=== PATIENT | male | born 1990 | race Caucasian/White ===

== ENCOUNTER 2016-07-21 22:28 | Emergency (ER) | payer OTHER ==
--- NOTE | 2016-07-21 23:01 | ED CLINICAL REPORT ---
Clinical Report - Physicians/Mid Levels [facility] [address] [place] [address] 07/21/2016 22:29 Patient: RASHID ALEXANDER Time Seen: 22:48; initial patient contact, initial documentation, patient care assumed. Arrived- By private vehicle. Historian- patient and family. HISTORY OF PRESENT ILLNESS Chief Complaint: Injury to the right ankle. The injury happened today happened this morning before work. The patient sustained a laceration from broken glass (coffee cup). Occurred at home. Patient is experiencing mild pain. Patient denies injury to the head or neck. No other injury. REVIEW OF SYSTEMS The patient sustained a laceration. No swelling, tingling, weakness or numbness. He has no pain on weight bearing. All systems otherwise negative, except as recorded above. PAST HISTORY See nurses notes. PROBLEMS: Hemorrhoids. GI Bleeding. Immunizations. Asthma. --22:41 Elvi Correa. ADDITIONAL SURGERIES: no known surgeries. Tetanus immunization status is unknown. SOCIAL HISTORY Never smoker. Occasional alcohol use. No drug use. No recent travel. Is a local resident. FAMILY HISTORY No significant family medical history. ADDITIONAL NOTES The nursing notes have been reviewed with agreement regarding the chief complaint, HPI, ROS, PMH and patient medications and allergies. PHYSICAL EXAM Vital Signs: 07/21/2016 22:40 BP: 108/66. HR: 74. RR: 20. O2 saturation: 100%. Temp: 97.4 F. Pain level now: 5/10. Have been reviewed as normal and appear to be correct. Appearance: Alert. Oriented X3. No acute distress. Head: Head atraumatic. Eyes: Pupils equal, round and reactive to light. Eyes normal inspection. Respiratory: No respiratory distress. Skin: Skin intact. Skin warm and dry. Extremities: Ankle injury present. Right lateral ankle: mild tenderness and subcutaneous 1.5 cm laceration of the lateral malleolus. SEE LACERATION PROCEDURE NOTE #1. Neurovascular intact distally. (right above malleolus). No ligamentous laxity present. No joint effusion. No erythema, swelling, abrasion, ecchymosis or puncture wound. No foreign body. No deformity consistent with a fracture, dislocation, or ligament rupture. No limitation in ROM. Foot injury present. Foot and ankle exam otherwise negative. Extremities otherwise negative. Gait: Normal gait. Neuro, Vascular and Tendons: Vascular status intact. Sensation intact. Motor intact. Tendon function intact. Neuro: Oriented X 3. No motor deficit. No sensory deficit. Note: isolated injury to ankle. PROGRESS AND PROCEDURES Laceration Repair: Location: right ankle. Length: 1.5cm. Complexity: simple (local anesthesia used and stapled). Wound depth/shape- linear and irregular and involving fascia. Wound is clean. No contamination, foreign body or contused tissue present. No tissue loss. Distal neuro/vascular/tendon status normal. Tendon not examined. No tendon deficit or laceration or tendon injury. Local anesthesia provided using 1% lidocaine (3 mL). Prepped with Betadine. Wound explored, cleansed, irrigated and examined to the base in bloodless field with normal saline. Wound not debrided extensively. No foreign material removed. Closure of superficial layer: (3 gael). Post-procedure: he is stable and there are no complications. Bleeding is controlled and neuro-vascular status is intact distal to the wound. Dressing applied. (per tech/nurse see other notes). Tetanus immunization given. Estimated blood loss: 1 mL. Course of Care: pt aware that with time delay wound edges might not approximate as well. Patient and family counseled in person regarding the patient's stable condition and diagnosis. Differential Diagnosis: Other possible considerations: lac, delayed tx, fb, skin avulsion. Above considerations are based on history and physical exam. Differential diagnosis was discussed with patient and patient's family. Disposition: Discharged home in good and improved condition (23:01). Condition: good and stable. CLINICAL IMPRESSION Single superficial laceration to the right ankle. Delayed treatment.No infection or foreign body present. INSTRUCTIONS Protect wound and keep wound area clean. Change dressing twice daily. Soak in warm soapy water twice daily. Apply bacitracin twice daily. Gael should be removed in ten days. Warnings: TETANUS: You were given a tetanus shot during your visit. Make a note for future reference. GENERAL WARNINGS: Return or contact your physician immediately if your condition worsens or changes unexpectedly, if not improving as expected, or if other problems arise. Specifically return if problem worsens. Follow-up: Follow up with your doctor in about ten days even if well and for suture removal and wound check. Call for an appointment. Summary of care provided to patient and family. Understanding of the discharge instructions verbalized by patient. (Electronically signed by Yamila Marte A.R.N.P. 07/27/2016 13:06)
--- NOTE | 2016-07-21 23:02 | ED NURSING NOTES ---
Clinical Report - Nurses [facility] [address] [place] [address] 07/21/2016 22:29 Patient: RASHID ALEXANDER TRIAGE Triage time 22:40 Jul 21 2016. Acuity: LEVEL 3. Chief Complaint: LACERATION. SEPSIS SCREEN: Sepsis Screen: negative. Negative (no infection suspected/documented). BEBETO COMA SCORE: [place] Coma Scale: 15- eyes open spontaneously (4); best verbal response- oriented x 4 (5); best motor response- obeys commands (6). --22:43 lEvi Correa 22:40 07/21/16. BP: 108/66. HR: 74. RR: 20. O2 saturation: 100%. Temp: 97.4 F (oral). Pain level now: 5/10. --22:43 Elvi Correa. Weight: 56.6 kg stated. Height/Length: 69 inches Per Patient. BMI: 18.4. --22:41 Elvi Correa. Medications None. --22:41 Elvi Correa. Medication/allergy information source: the patient. --22:43 Elvi Correa. Allergies No Known Drug Allergy. --22:41 Elvi Correa. History Arrived by private vehicle. Historian: patient. Accompanied by friend. Primary physician (dr hernandez). Location of injuries: right ankle. This occurred today. Occurred at home. ( Patient reports a coffee cup fell off the table and lacerated his right ankle this morning.). PAST MEDICAL HX: Tetanus status: up-to-date. Immunizations: status is unknown. SOCIAL HX: Never smoker. Occasional alcohol use. No drug use. No infectious disease exposure. ABUSE ASSESSMENT: No report of abuse. SELF HARM ASSESSMENT: A self harm assessment was performed. The patient answered "no" to the question "Have you recently felt down, depressed, or hopeless?", "Have you noticed less interest or pleasure in doing things?", "Do you have thoughts of harming or killing yourself?", "Are you here because you tried to hurt yourself?", "Have you ever tried to hurt yourself before today?", "Have you recently had thoughts about harming or killing others?" and "Do you have any dangerous items in your possession?". FALL RISK ASSESSMENT: Fall risk assessment completed. No fall risk identified. NUTRITIONAL RISK ASSESSMENT: The nutritional risk assessment revealed no deficiencies. FUNCTIONAL ASSESSMENT: Functional assessment: no impairments noted. LEARNING NEEDS ASSESSMENT: The learning needs assessment revealed no barriers. SKIN INTEGRITY ASSESSMENT: Skin integrity risk assessment completed. No skin integrity risk identified. --22:43 Elvi Correa. PROBLEMS: Hemorrhoids. GI Bleeding. Immunizations. Asthma. --22:41 Elvi Correa. ADDITIONAL SURGERIES: no known surgeries. Interventions ID band on patient. To treatment room. --22:43 Elvi Correa. PHYSICAL ASSESSMENT Ambulatory to room. GENERAL / NEURO / PSYCH: Alert. Oriented X 4. Appears in no acute distress. RESPIRATORY: Respirations not labored. EXTREMITIES: Right ankle: subcutaneous 4.0 cm laceration with controlled bleeding. SKIN: Skin is warm and dry. --22:43 Elvi Correa CVS: Normal heart rate and rhythm. Pulses within normal limits. --22:43 Elvi Correa. NURSING PROGRESS NOTES 22:44 07/21/16. Cold pack applied. Extremity elevated. Reassurance given to the patient. Two patient identifiers checked. Call light placed in reach. Side rails up x 1. Bed placed in lowest position. Brakes of bed on. Patient ready for evaluation- chart flagged and ED physician notified. --22:44 Elvi Correa 23:02. Applied clean dressing consisting of 4x4 gauze, following the application of antibiotic ointment (bacitracin). Secured with tape and gume. --23:06 Rayna Hurst 22:55 07/21/16. WOUND REPAIR: Wound repair performed by [facility]. Assisted by one tech. The wound is located on the right ankle. Preparation: with 1% lidocaine. Wound cleansed per PA and irrigated per PA. Procedure: wound repaired with shahrzad. Post-procedure: he was stable, no complications, bleeding controlled, neuro-vascular status intact distal to wound and dressing applied. Total time of assist / procedure: 15 minutes. --23:10 Elvi Correa 22:56 07/21/2016 TDAP IM 0.5 mL given. (Lot#: [id number], expiration date: 02/04/2018, Assistant Manager Trainee: sanofi pasteur). Given in the left deltoid. Allergies verified and confirmed 5 rights. Vaccine information statement provided to the patient. --22:56 Uday Rodríguez R.N. 22:56 07/21/2016 Lidocaine Injection Injectable 1 % given. (Left at bedside). --22:56 Uday Rodríguez R.N. DISPOSITION / DISCHARGE Condition at departure: improved and stable. The goals identified in the patient's plan of care were met. No learning barriers present. Discharge instructions provided and reviewed with the patient and family. Reviewed wound care and skin care instructions. Patient verbalized understanding. Written instructions provided in [place]. ( Follow up with PCP in ten days. Reviewed signs and symptoms of wound infection to look out for. Keep wound clean and dry.). The patient was discharged by the physician virtual customer assistant. He was discharged home and accompanied by parent. He left the Emergency Department ambulatory and via private vehicle. Parent driving. FALL RISK ASSESSMENT: Fall risk assessment completed. No fall risk identified. --23:09 Elvi Correa 23:08 07/21/16. BP: deferred. HR: deferred. RR: deferred. O2 saturation: deferred. Temp: deferred. Pain level now deferred. --23:09 Elvi Correa. Locked/Released at 07/21/2016 23:11 by Elvi Correa,
--- NOTE | 2016-07-21 23:02 | ED NURSING NOTES ---
Clinical Report - Nurses [facility] [address] [place] [address] 07/21/2016 22:29 Patient: RASHID ALEXANDER TRIAGE Triage time 22:40 Jul 21 2016. Acuity: LEVEL 3. Chief Complaint: LACERATION. SEPSIS SCREEN: Sepsis Screen: negative. Negative (no infection suspected/documented). BEBETO COMA SCORE: [place] Coma Scale: 15- eyes open spontaneously (4); best verbal response- oriented x 4 (5); best motor response- obeys commands (6). --22:43 Elvi Correa 22:40 07/21/16. BP: 108/66. HR: 74. RR: 20. O2 saturation: 100%. Temp: 97.4 F (oral). Pain level now: 5/10. --22:43 Elvi Correa. Weight: 56.6 kg stated. Height/Length: 69 inches Per Patient. BMI: 18.4. --22:41 Elvi Correa. Medications None. --22:41 Elvi Correa. Medication/allergy information source: the patient. --22:43 Elvi Correa. Allergies No Known Drug Allergy. --22:41 Elvi Correa. History Arrived by private vehicle. Historian: patient. Accompanied by friend. Primary physician (dr hernandez). Location of injuries: right ankle. This occurred today. Occurred at home. ( Patient reports a coffee cup fell off the table and lacerated his right ankle this morning.). PAST MEDICAL HX: Tetanus status: up-to-date. Immunizations: status is unknown. SOCIAL HX: Never smoker. Occasional alcohol use. No drug use. No infectious disease exposure. ABUSE ASSESSMENT: No report of abuse. SELF HARM ASSESSMENT: A self harm assessment was performed. The patient answered "no" to the question "Have you recently felt down, depressed, or hopeless?", "Have you noticed less interest or pleasure in doing things?", "Do you have thoughts of harming or killing yourself?", "Are you here because you tried to hurt yourself?", "Have you ever tried to hurt yourself before today?", "Have you recently had thoughts about harming or killing others?" and "Do you have any dangerous items in your possession?". FALL RISK ASSESSMENT: Fall risk assessment completed. No fall risk identified. NUTRITIONAL RISK ASSESSMENT: The nutritional risk assessment revealed no deficiencies. FUNCTIONAL ASSESSMENT: Functional assessment: no impairments noted. LEARNING NEEDS ASSESSMENT: The learning needs assessment revealed no barriers. SKIN INTEGRITY ASSESSMENT: Skin integrity risk assessment completed. No skin integrity risk identified. --22:43 Elvi Correa. PROBLEMS: Hemorrhoids. GI Bleeding. Immunizations. Asthma. --22:41 Elvi Correa. ADDITIONAL SURGERIES: no known surgeries. Interventions ID band on patient. To treatment room. --22:43 Elvi Correa. PHYSICAL ASSESSMENT Ambulatory to room. GENERAL / NEURO / PSYCH: Alert. Oriented X 4. Appears in no acute distress. RESPIRATORY: Respirations not labored. EXTREMITIES: Right ankle: subcutaneous 4.0 cm laceration with controlled bleeding. SKIN: Skin is warm and dry. --22:43 Elvi Correa CVS: Normal heart rate and rhythm. Pulses within normal limits. --22:43 Elvi Correa. NURSING PROGRESS NOTES 22:44 07/21/16. Cold pack applied. Extremity elevated. Reassurance given to the patient. Two patient identifiers checked. Call light placed in reach. Side rails up x 1. Bed placed in lowest position. Brakes of bed on. Patient ready for evaluation- chart flagged and ED physician notified. --22:44 Elvi Correa 23:02. Applied clean dressing consisting of 4x4 gauze, following the application of antibiotic ointment (bacitracin). Secured with tape and gume. --23:06 Rayna Hurst 22:55 07/21/16. WOUND REPAIR: Wound repair performed by [facility]. Assisted by one tech. The wound is located on the right ankle. Preparation: with 1% lidocaine. Wound cleansed per PA and irrigated per PA. Procedure: wound repaired with shahrzad. Post-procedure: he was stable, no complications, bleeding controlled, neuro-vascular status intact distal to wound and dressing applied. Total time of assist / procedure: 15 minutes. --23:10 Elvi Correa 22:56 07/21/2016 TDAP IM 0.5 mL given. (Lot#: [id number], expiration date: 02/04/2018, Blasting Helper: sanofi pasteur). Given in the left deltoid. Allergies verified and confirmed 5 rights. Vaccine information statement provided to the patient. --22:56 Uday Rodríguez R.N. 22:56 07/21/2016 Lidocaine Injection Injectable 1 % given. (Left at bedside). --22:56 Uday Rodríguez R.N. DISPOSITION / DISCHARGE Condition at departure: improved and stable. The goals identified in the patient's plan of care were met. No learning barriers present. Discharge instructions provided and reviewed with the patient and family. Reviewed wound care and skin care instructions. Patient verbalized understanding. Written instructions provided in Yoruba. ( Follow up with PCP in ten days. Reviewed signs and symptoms of wound infection to look out for. Keep wound clean and dry.). The patient was discharged by the physician radiology physician assistant. He was discharged home and accompanied by parent. He left the Emergency Department ambulatory and via private vehicle. Parent driving. FALL RISK ASSESSMENT: Fall risk assessment completed. No fall risk identified. --23:09 Elvi Correa 23:08 07/21/16. BP: deferred. HR: deferred. RR: deferred. O2 saturation: deferred. Temp: deferred. Pain level now deferred. --23:09 Elvi Correa. Locked/Released at 07/21/2016 23:11 by Elvi Correa,
--- NOTE | 2016-07-21 23:02 | ED ORDER SUMMARY ---
..... Patient: RASHID ALEXANDER OrderSheet [facility] VisitID: [id number] [place] [address] 25y, M Registration Date/Time: 07/21/2016 ORDER SHEET Weight: 56.6 kg (stated) Allergies: No Known Drug Allergy GENERAL ORDERS: MEDICATION ORDERS: Tdap IM 0.5 mL (NOW) (22:54 07/21/2016 JDeElena R.N. verbal order read back to HBivens A.R.N.P.) (Ack 22:55 HSoule) (22:56 JDeElena R.N.) Lidocaine Injection 1% (NOW, place at bedside, with syringes & needles) (:54 07/21/2016 JDeElena R.N. verbal order read back to HBivens A.R.N.P.) (Ack 22:55 HSoule) (22:56 JDeElena R.N.) IV FLUIDS: ORDER SHEET NOTES: [Electronically signed by Elvi Correa (23:11 07/21/2016)] [Electronically signed by Yamila Marte A.R.N.P. (13:06 07/27/2016)] [Electronically locked/signed by Elvi Correa (23:11 07/21/2016)]
--- NOTE | 2016-07-21 23:02 | ED ORDER SUMMARY ---
..... Patient: RASIHD ALEXANDER OrderSheet [facility] VisitID: [id number] [place] [address] 25y, M Registration Date/Time: 07/21/2016 ORDER SHEET Weight: 56.6 kg (stated) Allergies: No Known Drug Allergy GENERAL ORDERS: MEDICATION ORDERS: Tdap IM 0.5 mL (NOW) (22:54 07/21/2016 JDeElena R.N. verbal order read back to HBivens A.R.N.P.) (Ack 22:55 HSoule) (22:56 JDeElena R.N.) Lidocaine Injection 1% (NOW, place at bedside, with syringes & needles) (:54 07/21/2016 JDeElena R.N. verbal order read back to HBivens A.R.N.P.) (Ack 22:55 HSoule) (22:56 JDeElena R.N.) IV FLUIDS: ORDER SHEET NOTES: [Electronically signed by Elvi Correa (23:11 07/21/2016)] [Electronically signed by Yamila Marte A.R.N.P. (13:06 07/27/2016)] [Electronically locked/signed by Elvi Correa (23:11 07/21/2016)]
--- NOTE | 2016-07-27 13:06 | ED MAR SUMMARY ---
..... Medication Administration Record [facility] [address] [place] [address] Patient: RASHID ALEXANDER Visit ID: [id number] 25y, M Weight: 56.6 kg Height/Length: 69 in BMI: 18.4 ALLERGIES: No Known Drug Allergy Given 22:07/21/2016 Uday Rodríguez, R.N. Medication Administered: TDAP [IM], Dose: 0.5 mL IM. Medication Ordered: Tdap IM 0.5 mL (NOW). Given 22:07/21/2016 Uday Rodríguez, R.N. Medication Administered: LIDOCAINE [INJECTION], Dose: 1 % Injectable Injection. Medication Ordered: Lidocaine Injection 1% (NOW, place at bedside, with syringes & needles).
--- NOTE | 2016-07-27 13:06 | ED MED RECONCILIATION SUMMARY ---
Patient: RASHID ALEXANDER Medication Reconciliation Report [facility] VisitID: [id number] [address] [place] [address] 25y, M Registration Date/Time: 07/21/2016 Weight: 56.6 kg Height/Length: 69 in. BMI: 18.4 ALLERGIES: No Known Drug Allergy The patient's Home Medications are listed below: NONE. The source(s) of the original Home Medication information: patient The following Medications were given to the patient in the Emergency Department: TDAP [IM] IM 0.5 mL, administered: 07/21/2016 10:56:00 PM Lidocaine [Injection] Injection 1 %, administered: 07/21/2016 10:56:00 PM The following Medications were prescribed to the patient: None.
--- NOTE | 2016-07-27 13:06 | ED MED RECONCILIATION SUMMARY ---
Patient: RASHID ALEXANDER Medication Reconciliation Report [facility] VisitID: [id number] [address] [place] [address] 25y, M Registration Date/Time: 07/21/2016 Weight: 56.6 kg Height/Length: 69 in. BMI: 18.4 ALLERGIES: No Known Drug Allergy The patient's Home Medications are listed below: NONE. The source(s) of the original Home Medication information: patient The following Medications were given to the patient in the Emergency Department: TDAP [IM] IM 0.5 mL, administered: 07/21/2016 10:56:00 PM Lidocaine [Injection] Injection 1 %, administered: 07/21/2016 10:56:00 PM The following Medications were prescribed to the patient: None.
--- NOTE | 2016-07-27 13:06 | ED DISCHARGE INSTRUCTIONS ---
Patient: RASHID ALEXANDER General Instructions [facility] VisitID: [id number] [place] [address] 25y, M Registration Date/Time: 07/21/2016 Single superficial laceration to the right ankle. Delayed treatment.No infection or foreign body present. INSTRUCTIONS Protect wound and keep wound area clean. Change dressing twice daily. Soak in warm soapy water twice daily. Apply bacitracin twice daily. Gael should be removed in ten days. Warnings: TETANUS: You were given a tetanus shot during your visit. Make a note for future reference. GENERAL WARNINGS: Return or contact your physician immediately if your condition worsens or changes unexpectedly, if not improving as expected, or if other problems arise. Specifically return if problem worsens. Follow-up: Follow up with your doctor in about ten days even if well and for suture removal and wound check. Call for an appointment. Summary of care provided to patient and family. Understanding of the discharge instructions verbalized by patient. ADDITIONAL INFORMATION Laceration (All Closures) Alaceration is a cut through the skin. This will usually require stitches (sutures) or gael if it is deep. Minor cuts may be treated with a surgical tape closure orskin glue. Home care The following guidelines will help you care for your laceration at home: Extremity, face, or trunk wounds Keep the wound clean and dry. If a bandage was applied and it becomes wet or dirty, replace it. Otherwise, leave it in place for the first 24 hours. If stitches or gael were used, clean the wound daily. After removing the bandage, wash the area with soap and water. Use a wet cotton swab to loosen and remove any blood or crust that forms. The doctor may prescribe an antibiotic cream or ointment to prevent infection. Do not stop taking this medication until you have finished the prescribed course or the doctor tells you to stop. The doctor may also prescribe medications for pain. Follow the doctors instructions for taking these medications. You may remove the bandage to shower as usual after the first 24 hours, but do not soak the area in water (no swimming) until the stitches or gael are removed. If surgical tape was used, keep the area clean and dry. If it becomes wet, blot it dry with a towel. If skin glue was used, do not scratch, rub, or pick at the adhesive film. Do not place tape directly over the film. Do not apply liquid, ointment, or creams to the wound while the film is in place. Do not clean the wound with peroxide and do not apply ointments. Avoid activities that cause heavy sweating until the film has fallen off. Protect the wound from prolonged exposure to sunlight or tanning lamps. You may shower as usual but do not soak the wound in water (no baths or swimming). The film will fall off by itself in 510 days. Scalp wounds During the first two days, you may carefully rinse your hair in the shower to remove blood, glass or dirt particles. After two days, you may shower and shampoo your hair normally. Do not soak your scalp in the tub or go swimming until the stitches or gael have been removed. Talk with your doctor before applying any antibiotic ointment to the wound. Mouth wounds Eat soft foods to reduce pain. If the cut is inside of your mouth, clean by rinsing after each meal and at bedtime with a mixture of equal parts water and hydrogen peroxide (do not swallow!). Or, you can use a cotton swab to directly apply hydrogen peroxide onto the cut. Mouth wounds can be painful when eating. You may use an pesk-hjw-wrtmifi local numbing solution for pain relief. If this is not available, you may use any numbing solution for teething babies. You may apply this directly to the sores with a cotton-tip swab or with your finger. Follow-up care Follow up with your health care provider. Most skin wounds heal within ten days. Mouth and facial wounds heal within five days. However, even with proper treatment, a wound infection may sometimes occur. Therefore, you should check the wound daily for signs of infection listed below. Stitches should be removed from the face within five days; stitches and gael should be removed from other parts of the body within 714 days. If dissolving stitches were used in the mouth, these will fall out or dissolve without the need for removal. If tape closures were used, remove them yourself if they have not fallen off after 7 days. Ifskin glue was used, the film will fall off by itself in 510 days. When to seek medical care Get prompt medical attention if any of these occur: Bleeding not controlled by direct pressure Signs of infection, including increasing pain in the wound, increasing wound redness or swelling, or pus coming from the wound Fever of 100.4F (38C) or higher, or as directed by your health care provider Stitches or gael come apart or fall out or surgical tape falls off before 7 days Wound edges re-open Laceration, Extremity (Sutures, [place], Or Tape) A laceration is a cut through the skin. This will usually require stitches (sutures) or gael if it is deep. Minor cuts may be treated with surgical tape closures. Home care The following guidelines will help you care for your laceration at home: Keep the wound clean and dry. If a bandage was applied and it becomes wet or dirty, replace it. Otherwise, leave it in place for the first 24 hours, then change it once a day or as directed. If stitches or gael were used, clean the wound daily: After removing the bandage, wash the area with soap and water. Use a wet cotton swab to loosen and remove any blood or crust that forms. After cleaning, keep the wound clean and dry. Talk with your doctor before applying any antibiotic ointment to the wound. Reapply the bandage. You may remove the bandage to shower as usual after the first 24 hours, but do not soak the area in water (no swimming) until the stitches or gael are removed. If surgical tape closures were used, keep the area clean and dry. If it becomes wet, blot it dry with a towel. The doctor may prescribe an antibiotic cream or ointment to prevent infection. Do not stop taking this medication until you have finished the prescribed course or the doctor tells you to stop. The doctor may also prescribe medications for pain. Follow the doctors instructions for taking these medications. If you have chronic liver or kidney disease or ever had a stomach ulcer or GI bleeding, talk with your doctor before using these medicines. Follow-up care Follow up with your health care provider. Most skin wounds heal within ten days. However, an infection may sometimes occur despite proper treatment. Therefore, check the wound daily for the signs of infection listed below. Stitches and gael should be removed within 714 days. If surgical tape closures were used, you may remove them after 10 days, if they have not fallen off by then. Notify your doctor if you notice persistent numbness or weakness in the injured extremity. (Note:A radiologist will review any X-rays that were taken. We will notify you of any new findings that may affect your care.) When to seek medical care Get prompt medical attention if any of these occur: Increasing pain in the wound Redness, swelling, or pus coming from the wound Fever of 100.4F (38C) or higher, or as directed by your health care provider If stitches or gael come apart or fall out before your next appointment If the surgical tape closures fall off within seven days, or the wound edges re-open Bleeding not controlled by direct pressure Diphtheria Toxoid Adsorbed, Pertussis Vaccine, Acellular (Adsorbed), Tetanus Toxoid, Adsorbed Suspension for injection What is this medicine? DIPHTHERIA and TETANUS TOXOIDS; PERTUSSIS VACCINE (dif THEER ee uh and TET n us TOK soids; per TUS iss vak SEEN) is used to prevent diphtheria, tetanus, and pertussis infections. How should I use this medicine? This vaccine is for injection into a muscle. It is given by a health home health care coordinator. A copy of Vaccine Information Statements will be given before each vaccination. Read this sheet carefully each time. The sheet may change frequently. Talk to your order worker regarding the use of this vaccine in children. While the DTP vaccine may be given to children ages 6 weeks to 7 years and the Tdap vaccine may be given to children at least 10 years old, precautions do apply. What side effects may I notice from receiving this medicine? Side effects that you should report to your doctor or health home health care coordinator as soon as possible: allergic reactions like skin rash, itching or hives, swelling of the face, lips, or tongue breathing problems fever of 103 degrees F or more flu-like symptoms inconsolable crying infection pain, tingling, numbness in the hands or feet seizures swelling of arm or leg that was injected unusually weak or tired Side effects that usually do not require immediate medical attention (report these side effects to your doctor or health home health care coordinator if they continue or are bothersome): fussy, irritable loss of appetite fever of 102 degrees F or less pain, tenderness, redness, swelling, or a 'knot' at site where injected vomiting What may interact with this medicine? immune globulin medicines that suppress your immune function like adalimumab, anakinra, infliximab medicines to treat cancer medicines that treat or prevent blood clots like warfarin, enoxaparin, and dalteparin steroid medicines like prednisone or cortisone What if I miss a dose? It is important not to miss your dose. Call your doctor or health home health care coordinator if you are unable to keep an appointment. Where should I keep my medicine? This drug is given in a hospital or clinic and will not be stored at home. What should I tell my health care provider before I take this medicine? They need to know if you have any of these conditions: blood disorders like hemophilia fever or infection immune system problems neurologic disease seizures an unusual or allergic reaction to vaccines, thimerosal, latex, other medicines, foods, dyes, or preservatives or trying to get breast-feeding What should I watch for while using this medicine? See your health care provider for all shots of this vaccine as directed. To have protection from infection, you must have 3 shots of this vaccine plus boosters as needed. Tell your doctor right away if you have any serious or unusual side effects after getting this vaccine. You have been given the following additional information: Laceration, All Laceration, Extrem (Suture, Staple, Or Tape) Diphtheria Toxoid Adsorbed, Pertussis Vaccine, Acellular (Adsorbed), Tetanus Toxoid, Adsorbed Suspension for injection (Electronically signed by Yamila Marte A.R.N.P. 07/27/2016 13:06)
--- NOTE | 2016-07-27 13:06 | ED MAR SUMMARY ---
..... Medication Administration Record [facility] [address] [place] [address] Patient: RASHID ALEXANDER Visit ID: [id number] 25y, M Weight: 56.6 kg Height/Length: 69 in BMI: 18.4 ALLERGIES: No Known Drug Allergy Given 22:07/21/2016 Uday Rodríguez, R.N. Medication Administered: TDAP [IM], Dose: 0.5 mL IM. Medication Ordered: Tdap IM 0.5 mL (NOW). Given 22:07/21/2016 Uday Rodríguez, R.N. Medication Administered: LIDOCAINE [INJECTION], Dose: 1 % Injectable Injection. Medication Ordered: Lidocaine Injection 1% (NOW, place at bedside, with syringes & needles).
== END 2016-07-21 23:05 | disposition home or self-care (01) ==
LOC: ED SRH 22:28
DX: S91.011A Laceration without foreign body, right ankle, initial encounter (principal); W25.XXXA Contact with sharp glass, initial encounter; Y99.9 Unspecified external cause status; Y93.9 Activity, unspecified; Y92.009 Unspecified place in unspecified non-institutional (private) residence as the place of occurrence of the external cause; Z23 Encounter for immunization
CPT/HCPCS: 81663